=== PATIENT | female | born 2000 | race American Indian/Alaskan Native ===

== ENCOUNTER 2020-10-15 13:00 | Outpatient (CLI) | payer MEDICAID ==
[2020-10-15] MEDS ORDERED: LACTATED RINGERS 1,000 ML IV ONE (13:47)
[2020-10-15] MEDS ORDERED: ACETAMINOPHEN 500 MG TAB PO ONE (13:47)
[2020-10-15 13:49] VITALS: BP 108/57
[2020-10-15 14:17] LABS: Bacteria,Urine 1+ /HPF (Negative); Bilirubin,Urine NEG (Negative); Blood,Urine SM (Negative); Color,Urine Yellow (Yellow); Mucus,Urine FEW /HPF; Protein,Urine <15 mg/dL mg/dL (Negative); Urobilinogen,Urine < 2.0 mg/dL (<2.0)
--- NOTE | 2020-10-15 15:37 | Ultrasound Report ---
ULTRASOUND OBSTETRIC LIMITED INDICATION / CLINICAL INFORMATION: r/o placental abruption, placental location. TECHNIQUE: Transabdominal. COMPARISON: None available. FINDINGS: HEART RATE (beats per minute): 117 AMNIOTIC FLUID INDEX (cm) = not measured, though fluid appears adequate. PRESENTATION: Breech. ADDITIONAL FINDINGS: Anterior placenta is free of the os. No evidence of abruption. IMPRESSION: Single live IUP. No significant abnormality. No evidence of placental abruption. Signer Name: Leander Bustos MD Signed: 10/15/2020 3:33 PM Workstation Name: [id number]
--- NOTE | 2020-10-15 16:13 | Event Note ---
Date: 10/15/20 (No vaginal bleeding noted) Pt is a 20 y.o. @ 26 wks with c/o vaginal bleeding. She is receiving care at a [place] facility. States that the vaginal bleeding occurred after sexual intercourse two days ago. Ultrasound ordered. Results reviewed with the patient. No abruption, bleeding noted. Cervical exam cl/th/hi. No bleeding noted on exam glove or on peripad on the bed. monitor strip was appropriate for gestational age. No contractions noted. Small amount of blood noted on urine sample. Will send urine culture and treat prophylaxis for UTI. Pt is to follow up with her primary OBGYN this week. Discussed pelvic rest: nothing in the vagina and no sex until cleared by primary OB.
== END 2020-10-15 16:39 | disposition home or self-care (01) ==
LOC: TRG 13:00 → APU 13:03 → TRG 16:39
PROVIDERS: ATTEND Obstetrics & Gynecology
DX: O26.892 Other specified pregnancy related conditions, second trimester (principal); N93.9 Abnormal uterine and vaginal bleeding, unspecified; Z3A.26 26 weeks gestation of pregnancy
CPT/HCPCS: 59025; 76815; 81001; 87591